=== PATIENT | male | born 1950 | race Caucasian/White ===

== ENCOUNTER → 2019-07-22 | Outpatient (REF) | payer OTHER | LOC: M LAB LCGH 12:34 | PROVIDERS: ATTEND Surgery | DX: K63.5 Polyp of colon (principal); K31.7 Polyp of stomach and duodenum; K21.9 Gastro-esophageal reflux disease without esophagitis ==

== ENCOUNTER → 2019-10-12 | Outpatient (REF) | payer MEDICARE ==
[2019-10-12 13:57] LABS: BASO % 0.7 % (0.0-1.0); EOS # 0.2 10^3/uL (0.0-0.5); EOS % 3.9 % (0.0-3.0); HEMATOCRIT 40.1 % (42.0-52.0); HEMOGLOBIN 13.7 g/dl (13.5-17.5); LYMPH % 22.6 % (24.0-44.0); MEAN CORPUSCULAR HEMOGLOBIN 29.8 pg (27.0-33.0); MEAN CORPUSCULAR HGB CONC 34.2 g/dl (32.0-36.5); MEAN CORPUSCULAR VOLUME 87.4 fl (80.0-96.0); MONO # 0.5 10^3/uL (0.0-0.8); MONO % 10.4 % (0.0-5.0); NEUTROPHILS # 2.9 10^3/uL (1.5-8.5); PLATELET COUNT, AUTOMATED 251 10^3/uL (150-450); RED BLOOD COUNT 4.59 10^6/uL (4.30-6.10); WHITE BLOOD COUNT 4.6 10^3/uL (4.0-10.0)
[2019-10-12 14:26] LABS: ERYTHROCYTE SEDIMENTATION RATE 4 mm/hr (0-20)
[2019-10-12 14:52] LABS: ALBUMIN 3.8 GM/DL (3.2-5.2); ALT/SGPT 46 U/L (12-78); BILIRUBIN,TOTAL 0.2 MG/DL (0.2-1.0); BLOOD UREA NITROGEN 16 MG/DL (7-18); CARBON DIOXIDE LEVEL 28 MEQ/L (21-32); CHLORIDE LEVEL 102 MEQ/L (98-107); CREATININE FOR GFR 0.87 MG/DL (0.70-1.30); FERRITIN 15 NG/ML (26-388); FREE T4 0.84 NG/DL (0.76-1.46); GLOMERULAR FILTRATION RATE > 60.0 (>49); GLUCOSE, FASTING 118 MG/DL (70-100); IRON (FE) 37 UG/DL (65-175); PERCENT SATURATION 8.6 % (19.7-50.0); POTASSIUM SERUM 4.4 MEQ/L (3.5-5.1); RHEUMATOID FACTOR QUANT 25.6 IU/ML (<15.0); SODIUM LEVEL 134 MEQ/L (136-145); TOTAL IRON BINDING CAPACITY 431 UG/DL (250-450); TOTAL PROTEIN 6.9 GM/DL (6.4-8.2)
[2019-10-12 14:55] LABS: FOLATE > 24.0 NG/ML; VITAMIN B12 LEVEL 751 PG/ML
[2019-10-12 15:14] LABS: HEMOGLOBIN A1c 6.6 %
== END ==
LOC: M LABNEURO 12:52
PROVIDERS: ATTEND Psychiatry & Neurology Neurology
DX: E11.9 Type 2 diabetes mellitus without complications (principal); E07.89 Other specified disorders of thyroid; G90.09 Other idiopathic peripheral autonomic neuropathy

== ENCOUNTER → 2021-11-16 | Outpatient (CLI) | payer MEDICARE | LOC: M PLAIMG 10:42 | PROVIDERS: ATTEND Internal Medicine Geriatric Medicine | DX: R41.3 Other amnesia (principal) ==